=== PATIENT | male | born 1990 | race Caucasian/White ===

== ENCOUNTER 2019-05-10 09:15 | Emergency (ER) | payer OTHER ==
[2019-05-10] MEDS ORDERED: Lidocaine 1% 20 ML MDV INFILT ONE (09:16)
--- NOTE | 2019-05-10 09:59 | EDM.PDOC ---
ED HPI GENERAL MEDICAL PROBLEM - General Stated Complaint: NAIL IN RIGHT THUMB Time Seen by Provider: 05/10/19 09:25 Source of Information: Reports: Patient History Limitations: Reports: No Limitations - History of Present Illness INITIAL COMMENTS - FREE TEXT/NARRATIVE: c/o nail in thumb using a nail gun, nail entered fingerpad of R thumb lives with brother here with employer - Related Data Allergies Allergy/AdvReac Type Severity Reaction Status Date / Time amoxicillin Allergy Rash Verified 05/10/19 09:31 Home Meds: Home Meds Clindamycin HCl 300 mg PO TID #9 capsule 05/10/19 [Rx] ED ROS GENERAL - Review of Systems Review Of Systems: See Below Constitutional: Reports: No Symptoms HEENT: Reports: No Symptoms Respiratory: Reports: No Symptoms Cardiovascular: Reports: No Symptoms Endocrine: Reports: No Symptoms GI/Abdominal: Reports: No Symptoms : Reports: No Symptoms Musculoskeletal: Reports: No Symptoms Skin: Reports: Other (nail in thumb) Neurological: Reports: No Symptoms Psychiatric: Reports: No Symptoms Hematologic/Lymphatic: Reports: No Symptoms Immunologic: Reports: No Symptoms ED EXAM, GENERAL - Physical Exam Exam: See Below Exam Limited By: No Limitations General Appearance: Alert, WD/WN, No Apparent Distress Extremities: Other (R thumb with ~4" nail through fingerpad, parallel to the volar aspect, XR whos no involvement of bone, in distal half of distal phalange away from tendon, slight tingling of fingertip without loss of feeling, betadaine x 12 and alc prep x 12 used to clean base, #25 needle and 10 ml 1% lido used for digit block with complete analgesia, with RN supporting thumb and pliers grasping the head, the nail was pulled out without difficulty, there was paper wrapping present that was intact, not removed prior to removal of nail to prevent small pieces of glue from entering the skin, tolerated well) Neurological: No Motor/Sensory Deficits Course - Orders/Labs/Meds Orders: Active Orders 24 hr Category Date Time Status Fingers Thumb Rt F5 [CR] Stat Exams 05/10/19 09:31 Taken - Re-Assessments/Exams Free Text/Narrative Re-Assessment/Exam: 05/10/19 10:05 will give TdaP if not within past 5y at [facility] Departure - Departure Time of Disposition: 09:59 Disposition: Home, Self-Care 01 Condition: Good Clinical Impression: Foreign body of right thumb - Discharge Information *PRESCRIPTION DRUG MONITORING PROGRAM REVIEWED*: Not Applicable *COPY OF PRESCRIPTION DRUG MONITORING REPORT IN PATIENT KODI: Not Applicable Prescriptions: Clindamycin HCl 300 mg PO TID #9 capsule Instructions: Hand or Foot Foreign Body, Adult Referrals: PCP,None [Primary Care Provider] - Additional Instructions: To decrease risk of infection, take clindamycin 300 mg 1 capsule 3 times a day for 3 days. For pain, take ibuprofen 200 mg 4 tabs and acetaminophen 500 mg 2 tabs 3 times today, longer if needed. Use a fingerguard for the next 4 days. Avoid putting pressure on your thumb. See your doctor in 4 days. Return to ED (or see your physician the same day) for any increase in redness, swelling, pain, warmth, fever or drainage. - My Orders Last 24 Hours: My Active Orders 05/10/19 09:31 Fingers Thumb Rt F5 [CR] Stat - Assessment/Plan Last 24 Hours: My Active Orders 05/10/19 09:31 Fingers Thumb Rt F5 [CR] Stat
--- NOTE | 2019-05-10 10:39 | CR ---
INDICATION: Nail in thumb. RIGHT THUMB: Three views of the right thumb revealed a nail extending in the soft tissues of medial volar distal phalanx of the thumb. A fracture, dislocation, or other significant bone or joint abnormality was not identified. MTDD
[2019-05-10] MEDS: Diphtheria,Pertussis(Acell),Tetanus Vaccine 0.5 ML SDV IM ONE (10:40)
== END 2019-05-10 10:52 | disposition home or self-care (01) ==
LOC: FB.ED 09:15
DX: S60.351A Superficial foreign body of right thumb, initial encounter (principal); Z88.0 Allergy status to penicillin; W29.4XXA Contact with nail gun, initial encounter; Y93.89 Activity, other specified; Y99.0 Civilian activity done for income or pay
CPT/HCPCS: 73140; 90471; 90715; 99283; J2001